=== PATIENT | female | born 1985 | race Caucasian/White ===

== ENCOUNTER 2018-03-09 15:23 | Emergency (ER) | payer BC ==
[2018-03-09 15:26] VITALS: BP 138/81
[2018-03-09] MEDS ORDERED: Sodium Chloride 0.9% 10 ML Syringe FLUSH PRN (15:33)
--- NOTE | 2018-03-09 15:33 | EDM.PDOC ---
ED HPI GENERAL MEDICAL PROBLEM - General Chief Complaint: Headache Stated Complaint: Swollen lymphnode, migriane Time Seen by Provider: 03/09/18 15:25 Source of Information: Reports: Patient, Family (), Old Records ([facility] chart/EMR) - History of Present Illness INITIAL COMMENTS - FREE TEXT/NARRATIVE: The patient was brought to the emergency room via private automobile by her for evaluation of a bilateral frontal headache with some possible diplopia however no photophobia, nausea, diaphoresis, etc. with symptoms somewhat atypical for her previous migraine headaches. She did take 650 mg of Tylenol last evening when the symptoms started with 600 mg of ibuprofen taken at 11:00 a.m. this morning. The patient has also noted a lymph node on the back of her neck since yesterday evening with no history of insect bites, known exposure to infection, etc.. The patient has never had a CT scan evaluation for her migraine headaches, however she denies any other change in her neurological status. No recent history of abdominal pain, heartburn, nausea, diarrhea, melena , gross hematochezia, or any food intolerance, including fatty foods, etc.. The patient also denies any recent fever, cough, wheezing, dyspnea, etc.. Onset: Gradual, Unknown/Unsure Onset Date: 03/08/18 Duration: Constant, Getting Worse Location: Reports: Head, Neck (Lymph node as above). Denies: Face, Chest, Abdomen, Upper Extremity, Left, Upper Extremity, Right, Radiates to Quality: Reports: Pressure, Stabbing, Throbbing Severity: Severe Improves with: Reports: None Worsens with: Reports: None Context: Reports: Other (As above) Associated Symptoms: Reports: Headaches. 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 Denies: Aneurysm, Blood Clots/VTE/DVT, Heart Murmur, High Cholesterol, Hypertension, PVD , Syncope Other Cardiovascular History: She does not know her cholesterol status. Unknown type of arrhythmia in 2013. Respiratory History: Denies: Asthma, COPD, Intubation, Difficult, Intubation, Previous, PE, Pneumothorax Gastrointestinal History: Reports: None. Denies: Celiac Disease, Cholelithiasis , Chronic Constipation, Chronic Diarrhea, Fecal Incontinence, GERD, GI Bleed, Hepatitis, Hiatal Hernia, Inflammatory Bowel Disease, Irritable Bowel Syndrome, Jaundice, Pancreatitis, PUD Genitourinary History: Reports: None. 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 Denies: Dysfunctional Uterine Bleeding, Endometriosis : 5 Para: 4 LMP (Approximate): Other (See Below) Other OB/BYN History: LMP one week ago, which was normal. Note history of 5 cm left ovarian cyst which did require excision as below. Spontaneous SAB at about 6 weeks gestation in 2010 with no seizures required. Hyperemesis gravidarum with . Otherwise, Full term without complications during pregnancies or deliveries Musculoskeletal History: Reports: Arthritis, Back Pain, Chronic, Fracture, Fibromyalgia, Osteoarthritis, Other (See Below). Denies: Amputation, Gout, RA, SLE Other Musculoskeletal History: Clavicular fracture at age 7side unknown Neurological History: Reports: Headaches, Chronic, Migraines. Denies: Concussion, CVA, Head Trauma, MS, Parkinson's, Seizure, TIA Psychiatric History: Reports: None. Denies: Abuse, Victim of, ADD, ADHD, Addiction, Anxiety, Depression, Psych Hospitalization(s), PTSD, Suicide Attempt , Suicidal Ideation Endocrine/Metabolic History: Reports: Obesity/BMI 30+. Denies: Diabetes, Gestational, Diabetes, Type I, Diabetes, Type II, Diabetes Mellitus, Type 3c, Hypothyroidism, IDDM Hematologic History: Reports: Anemia, Iron Deficiency. Denies: Blood Transfusion(s) Immunologic History: Reports: None. Denies: AIDS, HIV, SLE Oncologic (Cancer) History: Reports: None. Denies: Basal Cell Carcinoma, Breast , Cervix, Hodgkin's Lymphoma, Leukemia, Lymphoma, Malignant Melanoma, Non- Hodgkin's Lymphoma, Ovarian, Squamous Cell Carcinoma, Uterine Dermatologic History: Reports: Psoriasis. Denies: Eczema - Infectious Disease History Infectious Disease History: Reports: Chicken Pox. Denies: C-Difficile, Measles , Meningitis, Mononucleosis, MRSA, Mumps, Pertussis (Whooping Cough), Rheumatic Fever, Rubella, Scarlet Fever, Shingles, TB, VRE - Past Surgical History Head Surgeries/Procedures: Reports: None HEENT Surgical History: Reports: Oral Surgery, Other (See Below). Denies: Adenoidectomy, Eye Surgery, Laser Surgery, LASIK, Myringotomy w Tube(s), Naso- Sinus Surgery, Tonsillectomy Other HEENT Surgeries/Procedures: [place] teeth extraction 2 in 2004. Cardiovascular Surgical History: Reports: None. Denies: Varicose Respiratory Surgical History: Reports: None. Denies: Thoracentesis GI Surgical History: Reports: None. Denies: Appendectomy, Cholecystectomy, Colon, Colonoscopy, EGD, Hernia, Abdominal, Hernia, Inguinal, Hernia Repair/ Other, Polypectomy Female Surgical History: Reports: Other (See Below) Other Female Surgeries/Procedures: Excision of benign left ovarian cyst in June 2015. Endocrine Surgical History: Reports: None. Denies: Thyroid Biopsy Neurological Surgical History: Reports: None. Denies: C-Spine, Discectomy, Laminectomy, Lumbar Spine, Sacral Spine, Spinal Fusion, Thoracic Spine Musculoskeletal Surgical History: Reports: None. Denies: Arthroscopic Procedure , Carpal Tunnel, Ganglion Cyst, Joint Replacement, ORIF, Shoulder Surgery Oncologic Surgical History: Reports: None Dermatological Surgical History: Reports: None - Past Imaging History Past Imaging History: Reports: Holter Monitor (2013), MRI (MRI of the right knee on 04/25/17. MRI of the lumbar region in 2009.), Ultrasound (Pelvic ultrasound on 06/25/15. OB ultrasounds.) Social & Family History - Tobacco Use Smoking Status *Q: Never Smoker Tobacco Use Within Last Twelve Months: No Used Tobacco, but Quit: No Smoking Cessation Information Provided To Patient: No Second Hand Smoke Exposure: Yes Source of Second Hand Smoke Exposure: smokes Second Hand Smoke Education Provided: Yes - Alcohol Use Alcohol Use History: Yes Days Per Week of Alcohol Use: 0 Number of Drinks Per Day: 1 Number of Drinks Per Day Comment: Usually beer for holidays. No previous DWIs, problems with alcohol abuse, etc. 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 - Physical Exam Exam: See Below Exam Limited By: No Limitations General Appearance: Alert, WD/WN, No Apparent Distress, Anxious (Mild-to- moderate) Eye Exam: Bilateral Eye: EOMI, Normal Fundi, Normal Inspection (No Nystagmus or photophobia. Patient wearing glasses.), PERRL Ears: Normal External Exam, Normal Canal, Hearing Grossly Normal, Normal TMs Nose: Normal Inspection, Normal Mucosa, No Blood Throat/Mouth: Normal Inspection, Normal Lips, Normal Teeth, Normal Gums, Normal Oropharynx, Normal Voice, No Airway Compromise. No: Dysphagia, Evidence of Tongue Biting, Perioral Cyanosis Head Exam: Atraumatic, Normocephalic. No: Facial Swelling, Facial Tenderness, Sinus Tenderness Neck: Supple, Non-Tender, Lymphadenopathy (L) (1.5 cm left nuchal lymph node with minimal localized tenderness and no evidence of localized infection), Tender Lateral (At site of lymph node). No: Lymphadenopathy (R), Thyromegaly Respiratory/Chest: No Respiratory Distress, Lungs Clear, Normal Breath Sounds, No Accessory Muscle Use, Chest Non-Tender. No: Pleural Rub, Retractions Cardiovascular: Normal Peripheral Pulses, Regular Rate, Rhythm, No Edema, No Gallop, No JVD, No Murmur, No Rub. No: Gallop/S3, Gallop/S4, Friction Rub GI/Abdominal: Normal Bowel Sounds, Soft, Non-Tender, No Organomegaly, No Distention, No Abnormal Bruit, No Mass. No: Guarding (Female) Exam: Deferred Rectal (Female) Exam: Deferred Neuro Exam (Abbreviated): Alert, Oriented, CN II-XII Intact, Normal Cognition, Normal Gait, Normal Reflexes, No Motor/Sensory Deficits Back Exam: Normal Inspection, Full Range of Motion. No: CVA Tenderness (L), CVA Tenderness (R), Muscle Spasm Extremities: Normal Inspection, Normal Range of Motion, Non-Tender, No Pedal Edema, Normal Capillary Refill. No: Yunier's Sign Psychiatric: Anxious (Moderate) Skin Exam: Warm, Dry, Intact, Normal Color, No Rash, Stud(s) (Multiple including right supraorbital, auricular regions bilaterally, and tongue), Tattoo (s) (Multiple). No: Diaphoretic, Wound/Incision Course - Vital Signs Last Recorded V/S: Last Vital Signs Temp 36.3 C 03/09/18 15:25 Pulse 58 L 03/09/18 15:25 Resp 14 03/09/18 15:25 BP 138/81 03/09/18 15:25 Pulse Ox 98 03/09/18 15:25 Vital Signs - 24 hr 03/09/18 15:25 Temperature [ 36.3 C Temporal] Pulse, 58 L Peripheral [ Pulse Oximetry] Respiratory 14 Rate Blood Pressure 138/81 [Left Upper Arm ] O2 Sat by Pulse 98 Oximetry - Orders/Labs/Meds Orders: Active Orders 24 hr Category Date Time Status Peripheral IV Care [RC] . DIRECTED Care 03/09/18 15:34 Active Head wo Cont [CT] Stat Exams 03/09/18 15:34 Taken Sodium Chloride 0.9% [Saline Flush] Med 03/09/18 15:33 Active 10 ml FLUSH ASDIRECTED PRN Obtain Past Medical Record [OM.PC] Routine Oth 03/09/18 15:33 Active Peripheral IV Insertion Adult [OM.PC] Routine Oth 03/09/18 15:34 Ordered Medication Orders Sodium Chloride (Saline Flush) 10 ml FLUSH ASDIRECTED PRN PRN Reason: Keep Vein Open Labs: Laboratory Tests 03/09/18 03/09/18 03/09/18 Range/Units 15:48 15:48 15:48 WBC 6.2 (4.0-10.2) K/uL RBC 4.21 (3.77-5.09) M/uL Hgb 12.3 D (11.7-15.5) g/dL Hct 35.9 (34.0-46.0) % MCV 85.3 (84.0-98.0) fL MCH 29.2 (28.2-33.3) pg MCHC 34.3 (31.7-36.0) g/dL RDW 13.2 (11.2-14.1) % Plt Count 252 (150-350) K/uL Neut % (Auto) 54.9 (45.0-80.0) % Lymph % (Auto) 35.7 (10.0-50.0) % [place] % (Auto) 6.5 (2.0-14.0) % Eos % (Auto) 2.6 (0.0-5.0) % Baso % (Auto) 0.3 (0.0-2.0) % Neut # (Auto) 3.40 (1.40-7.00) K/uL Lymph # (Auto) 2.21 (0.50-3.50) K/uL [place] # (Auto) 0.40 (0.00-1.00) K/uL Eos # (Auto) 0.16 (0.00-0.50) K/uL Baso # (Auto) 0.02 (0.00-0.20) K/uL Sodium 141 (136-145) mmol/L Potassium 3.7 (3.5-5.1) mmol/L Chloride 108 H (98-107) mmol/L Carbon Dioxide 24.1 (21.0-32.0) mmol/L BUN 6 L (7-18) mg/dL Creatinine 0.66 (0.51-1.17) mg/dL Est Cr Clr Drug Dosing TNP Estimated GFR (MDRD) > 60 mL/min Glucose 104 (74-106) mg/dL Lactic Acid 0.5 (0.4-2.0) mmol/L Calcium 8.7 (8.5-10.1) mg/dL Magnesium 1.8 (1.8-2.4) mg/dL Total Bilirubin 0.3 (0.2-1.0) mg/dL AST 23 (15-37) U/L ALT 36 (12-78) U/L Alkaline Phosphatase 71 (46-116) IU/L Total Protein 6.7 (6.4-8.2) g/dL Albumin 3.5 (3.4-5.0) g/dL Meds: Medications Generic Name Dose Route Start Last Admin Trade Name Halley PRN Reason Stop Dose Admin Sodium Chloride 10 ml 03/09/18 15:33 Saline Flush FLUSH ASDIRECTED PRN Keep Vein Open Discontinued Medications Generic Name Dose Route Start Last Admin Trade Name Halley PRN Reason Stop Dose Admin Diphenhydramine HCl 50 mg 03/09/18 15:35 03/09/18 15:56 Benadryl IVPUSH 03/09/18 15:36 50 mg ONETIME ONE Administration Ketorolac Tromethamine 30 mg 03/09/18 15:35 03/09/18 15:56 Toradol IVPUSH 03/09/18 15:36 30 mg ONETIME ONE Administration Metoclopramide HCl 20 mg 03/09/18 15:35 03/09/18 15:57 Reglan IVPUSH 03/09/18 15:36 20 mg ONETIME ONE Administration - Radiology Interpretation Free Text/Narrative:: CT of the brain without contrast showed no acute abnormalities. Written report received with no previous telephone report as requested. Departure - Departure Time of Disposition: 17:20 Disposition: Home, Self-Care 01 Condition: Good Clinical Impression: Tobacco abuse counseling, Migraine - Discharge Information Instructions: Diphenhydramine injection, Metoclopramide injection, Migraine Headache, [id number], Ketorolac injection, Steps to Quit Smoking Referrals: González Law PA [Primary Care Provider] - Forms: ED Department Discharge Additional Instructions: 1. Follow up with your regular provider in 10-14 days as needed, if symptoms persist. Bring these discharge instructions with you to that visit.. 2. Tylenol 650 mg by mouth every 4 hours and/or OTC ibuprofen 2-3 tabs by mouth every 6 hours with food as directed./needed. Next dose of ibuprofen in 6 hours as needed secondary to medications given in the emergency room. 3. Sedation precautions with no driving, etc. for 12 hours because of emergency room medications. 4. Ice packs to head and neck, dark and quiet room, etc. as directed until headache resolves. 5. Discuss possible additional preventative medications for your headaches with your regular provider. Consider OTC magnesium oxide 400 mg every day as headache prevention with diarrhea precautions with this medicatiion as directed. Never initiate medications on your own, however, prior to discussing this with your regular provider. 6. Stop all tobacco use CLIVE as directed/per provided information and consider contacting Quit LIne, etc.. - Problem List & Annotations (1) Migraine SNOMED Code(s): 61064667 Code(s): G43.909 - MIGRAINE, UNSP, NOT INTRACTABLE, WITHOUT STATUS MIGRAINOSUS Status: Acute Priority: High Current Visit: Yes Onset Date: 03/09/18 Annotation/Comment:: Excellent results with treatment as above. Sedation, etc. precautions given. Note CT scan results as above, which were discussed during today's visit. Symptomatically as per discharge instructions. Nonspecific left nuchal lymphadenopathy with normal blood work, etc. She will follow-up with her regular provider in 1014 days, if this lymphadenopathy persists for further evaluation. (2) Tobacco abuse counseling SNOMED Code(s): 159838661, 279258536, 621344561 Code(s): Z71.6 - TOBACCO ABUSE COUNSELING Status: Acute Current Visit: Yes Annotation/Comment:: 's tobacco cessation encouraged with information once again provided - Problem List Review Problem List Initiated/Reviewed/Updated: Yes - My Orders Last 24 Hours: My Active Orders 03/09/18 15:33 Sodium Chloride 0.9% [Saline Flush] 10 ml FLUSH ASDIRECTED PRN Obtain Past Medical Record [OM.PC] Routine 03/09/18 15:34 Peripheral IV Care [RC] . DIRECTED Head wo Cont [CT] Stat Peripheral IV Insertion Adult [OM.PC] Routine - Assessment/Plan Last 24 Hours: My Active Orders 03/09/18 15:33 Sodium Chloride 0.9% [Saline Flush] 10 ml FLUSH ASDIRECTED PRN Obtain Past Medical Record [OM.PC] Routine 03/09/18 15:34 Peripheral IV Care [RC] . DIRECTED Head wo Cont [CT] Stat Peripheral IV Insertion Adult [OM.PC] Routine Assessment:: As above. Plan: As above. Extensive precautions were given to the patient and her , who are in agreement with the treatment plan. See Patient Instructions for further treatment and plan.
[2018-03-09] MEDS ORDERED: Ketorolac 30 MG/ML SDV IVPUSH ONE (15:35)
[2018-03-09] MEDS ORDERED: diphenhydrAMINE 50 MG/ML SDV IVPUSH ONE (15:35)
[2018-03-09] MEDS ORDERED: Metoclopramide 10 MG/2 ML SDV IVPUSH ONE (15:35)
[2018-03-09 16:08] LABS: CHLORIDE,CL 108 mmol/L (98-107); SODIUM,NA 141 mmol/L (136-145)
== END 2018-03-09 17:20 | disposition home or self-care (01) ==
LOC: LL.ED 15:23
DX: G43.909 Migraine, unspecified, not intractable, without status migrainosus (principal); Z71.6 Tobacco abuse counseling; Z77.22 Contact with and (suspected) exposure to environmental tobacco smoke (acute) (chronic); Z88.5 Allergy status to narcotic agent; Z88.8 Allergy status to other drugs, medicaments and biological substances; Z91.030 Bee allergy status
CPT/HCPCS: 36415; 70450; 80053; 83605; 83735; 85025; 96374; 96375; 99284; J1200; J1885; J2765

== ENCOUNTER 2020-03-14 10:20 | Emergency (ER) | payer BC, MEDICAID ==
--- NOTE | 2020-03-14 10:25 | EDM.PDOC ---
ED HPI GENERAL MEDICAL PROBLEM - General Chief Complaint: General Stated Complaint: BACK PAIN Time Seen by Provider: 03/14/20 10:20 Source of Information: Reports: Patient, Old Records ([facility] EMR. No paper hospital chart available.) History Limitations: Reports: No Limitations - History of Present Illness INITIAL COMMENTS - FREE TEXT/NARRATIVE: The patient drove herself to the emergency room via private automobile for evaluation of 06/21 right-sided low back pain and spasms with the patient hearing a snap when she got up in the chair at home at about 13:30 hours yesterday afternoon. Symptoms have been refractory to topical heating pad and ibuprofen of 800 mg, which was last taken at 02:30 a.m. this morning. No history of fall, head injury, paresthesias, leg weakness, neurological deficits, or other complaints or injuries. No recent history of abdominal pain, heartburn, nausea, diarrhea, melena, gross hematochezia, or any food intolerance, including fatty foods, etc.. She denies any gross hematuria, colic, or other UTI symptoms. The patient also denies any recent fever, cough, wheezing, dyspnea, etc.. Onset: Sudden Onset Date: 03/13/20 Onset Time: 13:30 Duration: Constant, Getting Worse Location: Reports: Back. Denies: Head, Face, Neck, Chest, Abdomen, Lower Extremity, Left, Lower Extremity, Right, Radiates to Quality: Reports: Same as Previous Episode, Stabbing Severity: Severe Improves with: Reports: Rest Worsens with: Reports: Movement Context: Reports: Other (As above). 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: Home Treatments (As above), NSAIDS Right Lower Back Pain Score (Numeric/FACES): 10 Lower Back Pain Score (Numeric/FACES): 7 - Related Data Allergies Allergy/AdvReac Type Severity Reaction Status Date / Time codeine Allergy Rash Verified 03/14/20 10:38 promethazine Allergy Hallucinati Verified 03/14/20 10:38 ons venom-honey bee Allergy Anaphylactic Verified 03/14/20 10:38 Shock Home Meds: Home Meds Ibuprofen 600 mg PO Q6HR PRN 03/09/18 [History] Cyclobenzaprine [Flexeril] 10 mg PO TID PRN #30 tab 03/14/20 [Rx] Past Medical History HEENT History: Reports: Impaired Vision, Other (See Below) Other HEENT History: She wears glasses Cardiovascular History: Reports: Arrhythmia, Other (See Below). Denies: Aneurysm, Blood Clots/VTE/DVT, Heart Murmur, High Cholesterol, Hypertension, PVD, Syncope Other Cardiovascular History: She does not know her cholesterol status. Unknown type of arrhythmia in 2013. Respiratory History: Denies: Asthma, Bronchitis, Recurrent, COPD, Intubation, Previous, PE, Pneumonia, Recurrent, Pneumothorax Gastrointestinal History: Reports: None. Denies: Celiac Disease, Cholelithiasis, Chronic Constipation, Chronic Diarrhea, Fecal Incontinence, GERD, GI Bleed, Hepatitis, Hiatal Hernia, Inflammatory Bowel Disease, Irritable Bowel Syndrome, Jaundice, Pancreatitis, PUD Genitourinary History: Reports: None. Denies: Acute Renal Failure, Chronic Renal Insuffiency, Renal Calculus, Retention, Urinary, STD, Urinary Incontinence, UTI, Recurrent MINE EXPERT History: Reports: Hyperemesis, Polycystic Ovaries, , Spontaneous . Denies: Dysfunctional Uterine Bleeding, Endometriosis : 5 Para: 4 Other MINE EXPERT History: LMP 2 weeks ago, which was normal. Note history of 5 cm left ovarian cyst which did require excision as below. Spontaneous SAB at about 6 weeks gestation in 2010 with no D&C required. Hyperemesis gravidarum with . Otherwise, Full term without complications during pregnancies or deliveries Musculoskeletal History: Reports: Arthritis, Back Pain, Chronic, Fracture, Fibromyalgia, Osteoarthritis, Other (See Below). Denies: Amputation, Gout, RA, SLE Other Musculoskeletal History: Clavicular fracture at age 7side unknown Neurological History: Reports: Headaches, Chronic, Migraines. Denies: Concussion, CVA, Head Trauma, MS, Parkinson's, Seizure, TIA Psychiatric History: Reports: None. Denies: Abuse, Victim of, ADD, ADHD, Addiction, Anxiety, Depression, Psych Hospitalization(s), PTSD, Suicide Attempt, Suicidal Ideation Endocrine/Metabolic History: Reports: Obesity/BMI 30+. Denies: Diabetes, Gestational, Diabetes, Type I, Diabetes, Type II, Diabetes Mellitus, Type 3c, Hypothyroidism, IDDM Hematologic History: Reports: Anemia, Iron Deficiency. Denies: Blood Transfusion(s) Immunologic History: Reports: None. Denies: AIDS, HIV, SLE Oncologic (Cancer) History: Reports: None. Denies: Basal Cell Carcinoma, Breast, Cervix, Hodgkin's Lymphoma, Leukemia, Lymphoma, Malignant Melanoma, Non- Hodgkin's Lymphoma, Ovarian, Squamous Cell Carcinoma, Uterine Dermatologic History: Reports: Psoriasis. Denies: Eczema - Infectious Disease History Infectious Disease History: Reports: Chicken Pox. Denies: C-Difficile, Measles, Meningitis, Mononucleosis, MRSA, Mumps, Pertussis (Whooping Cough), Rheumatic Fever, Rubella, Scarlet Fever, Shingles, TB, VRE - Past Surgical History Head Surgeries/Procedures: Reports: None HEENT Surgical History: Reports: Oral Surgery, Other (See Below). Denies: Adenoidectomy, Eye Surgery, Laser Surgery, LASIK, Myringotomy w Tube(s), Naso- Sinus Surgery, Tonsillectomy Other HEENT Surgeries/Procedures: Garrison teeth extraction 2 in 2004. Cardiovascular Surgical History: Reports: None. Denies: Varicose Respiratory Surgical History: Reports: None. Denies: Thoracentesis GI Surgical History: Reports: None. Denies: Appendectomy, Cholecystectomy, Colon, Colonoscopy, EGD, Hernia, Abdominal, Hernia, Inguinal, Hernia Repair/Other, Polypectomy Female Surgical History: Reports: Other (See Below) Other Female Surgeries/Procedures: Excision of benign left ovarian cyst in June 2015. Endocrine Surgical History: Reports: None. Denies: Thyroid Biopsy Neurological Surgical History: Reports: None. Denies: C-Spine, Discectomy, Laminectomy, Lumbar Spine, Sacral Spine, Spinal Fusion, Thoracic Spine Musculoskeletal Surgical History: Reports: None. Denies: Arthroscopic Procedure, Carpal Tunnel, Ganglion Cyst, Joint Replacement, ORIF, Shoulder Surgery Oncologic Surgical History: Reports: None Dermatological Surgical History: Reports: None - Past Imaging History Past Imaging History: Reports: Holter Monitor (2013), MRI (MRI of the right knee on 04/25/17. MRI of the lumbar region in 2009.), Ultrasound (Pelvic ultrasound on 06/25/15. OB ultrasounds.) Social & Family History - Tobacco Use Smoking Status *Q: Never Smoker Used Tobacco, but Quit: No Smoking Cessation Information Provided To Patient: No Second Hand Smoke Exposure: Yes Source of Second Hand Smoke Exposure: Second Hand Smoke Education Provided: Yes (Information also previously given on 03/09/15) - Alcohol Use Alcohol Use History: Yes Days Per Week of Alcohol Use: 0 Number of Drinks Per Day: 1 Number of Drinks Per Day Comment: Usually beer for holidays. No previous DWIs, problems with alcohol abuse, etc. Total Drinks Per Week: 0 Alcohol Use in Last Twelve Months: Yes Alcohol Use Frequency: Rarely - Recreational Drug Use Recreational Drug Use: No Recreational Drug Type: Denies: Amphetamines (Speed), Cocaine, Heroin, Inhalants (Glues, Solvents, Aerosols), LSD (Acid), Marijuana/Hashish, Methamphetamine, Morphine, Oxycodone - Living Situation & Occupation Living situation: Reports: (2014, however currently in divorce process. 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 ED EXAM, GENERAL - Physical Exam Exam: See Below Exam Limited By: No Limitations General Appearance: Alert, WD/WN, No Apparent Distress, Anxious (Moderate) Head: Atraumatic, Normocephalic. No: Facial Swelling, Facial Tenderness, Sinus Tenderness Neck: Normal Inspection, Supple, Non-Tender, Full Range of Motion. No: Lymphadenopathy (L), Lymphadenopathy (R), Thyromegaly Respiratory/Chest: No Respiratory Distress, Lungs Clear, Normal Breath Sounds, No Accessory Muscle Use, Chest Non-Tender. No: Pleural Rub, Retractions Cardiovascular: Normal Peripheral Pulses, Regular Rate, Rhythm, No Edema, No Gallop, No JVD, No Murmur, No Rub. No: Gallop/S3, Gallop/S4, Friction Rub Peripheral Pulses: 2+: Radial (L), Radial (R), Dorsalis Pedis (L), Dorsalis Pedis (R) GI/Abdominal: Normal Bowel Sounds, Soft, Non-Tender, No Organomegaly, No Distention, No Abnormal Bruit, No Mass, Pelvis Stable, Other (obese). No: Guarding (Female) Exam: Deferred Rectal (Female) Exam: Deferred Back Exam: Decreased Range of Motion, Muscle Spasm (Mild to upper right sided paraspinal tenderness and muscle spasms), Paraspinal Tenderness. No: CVA Tenderness (L), CVA Tenderness (R), Vertebral Tenderness Extremities: Normal Inspection, Normal Range of Motion, Non-Tender, No Pedal Edema, Normal Capillary Refill. No: Yunier's Sign Neurological: Alert, Oriented, CN II-XII Intact, Normal Cognition, Normal Gait (Although with difficulty secondary to back spasms), Normal Reflexes, No Motor/Sensory Deficits Psychiatric: Anxious (Moderate), Depressed Mood (Mild) Skin Exam: Warm, Dry, Intact, Normal Color, No Rash, Stud(s) (Multiple including bilateral auricules and right upper eyebrow), Tattoo(s) (Multiple). No: Diaphoretic, Wound/Incision Lymphatic: No Adenopathy Course - Vital Signs Last Recorded V/S: Last Vital Signs Temp 36.3 C 03/14/20 10:21 Pulse 97 03/14/20 10:21 Resp 16 03/14/20 10:21 BP 123/81 03/14/20 10:21 Pulse Ox 100 03/14/20 10:21 Vital Signs - 24 hr 03/14/20 10:21 Temperature [ 36.3 C Temporal] Pulse, 97 Peripheral [ Pulse Oximetry] Respiratory 16 Rate Blood Pressure 123/81 [Right Upper Arm] O2 Sat by Pulse 100 Oximetry - Orders/Labs/Meds Orders: Active Orders 24 hr Category Date Time Status Lumbar Spine 2 or 3V [CR] Stat Exams 03/14/20 10:25 Ordered Obtain Past Medical Record [OM.PC] Routine Oth 03/14/20 10:25 Active Labs: None Meds: Medications Discontinued Medications Generic Name Dose Route Start Last Admin Trade Name Halley PRN Reason Stop Dose Admin Ketorolac Tromethamine 60 mg 03/14/20 10:43 03/14/20 10:48 Toradol IM 03/14/20 10:44 60 mg ONETIME ONE Administration - Radiology Interpretation Free Text/Narrative:: X-rays of the lumbar spine 3 views, shows no evidence of fracture, dislocation, etc. Mild osteoarthritic changes especially in L5. No decreased lordosis Departure - Departure Time of Disposition: 11:07 Disposition: Home, Self-Care 01 Condition: Good Clinical Impression: Tobacco abuse counseling, Low back pain, Osteoarthritis, Mixed anxiety depressive disorder - Discharge Information *PRESCRIPTION DRUG MONITORING PROGRAM REVIEWED*: Not Applicable *COPY OF PRESCRIPTION DRUG MONITORING REPORT IN PATIENT [place]UL[place]: Not Applicable Prescriptions: Cyclobenzaprine [Flexeril] 10 mg PO TID PRN #30 tab PRN Reason: Spasms Instructions: Steps to Quit Smoking, [id number], Health Risks of Smoking, Acute Back Pain, Adult Referrals: PCP,Unknown [Primary Care Provider] - Forms: ED Department Discharge Additional Instructions: 1. Follow up with your regular provider in 10-14 days as needed, if symptoms persist. Bring these discharge instructions with you to that visit.. 2. Tylenol 650 mg by mouth every 4 hours and/or OTC ibuprofen 2-3 tabs by mouth every 6 hours with food as directed./needed. You may stagger these medications for 48-72 hours only, which essentially means that you are receiving a pain medication about every 2 hours. Next dose of ibuprofen as needed in 6 hours secondary to medications given in the emergency room. 3. BenGay or equivalent, heating pad, and/or ice packs as directed. 4. Stop all tobacco exposure CLIVE as directed with counselling, information, etc. given at discharge. 5. Sedation dry mouth, etc. precautions with Flexeril as discussed 6. Immediately after this visit verify that your cellular telephone's voicemail has been activated and is empty. Also verify that your home telephone's answering machine is operating properly and has space to receive messages. Note that it is sometimes necessary for us to be able to contact you at a later date to discuss your medical care. 7. Please remember that we are ALWAYS here for you and want to answer any questions you may have. Feel free to call the hospital any time and we call you back CLIVE. Sepsis Event Note (ED) - Focused Exam Vital Signs: Vital Signs Temp Pulse Resp BP Pulse Ox 03/14/20 10:21 36.3 C 97 16 123/81 100 - Problem List & Annotations (1) Low back pain SNOMED Code(s): 375580668 Code(s): M54.5 - LOW BACK PAIN Status: Acute Priority: High Onset Date: 03/13/20 Annotation/Comment:: IM Toradol given. She does not need a work excuse. Sedation, etc. precautions given with initiation of outpatient Flexeril therapy. Otherwise, symptomatic relief as per discharge instructions. Weight loss in moderation was already previously discussed with patient already consulting with her regular provider for this issue. Distant MRI of the lumbar spine in the past as above. Qualifiers: Chronicity: acute Back pain laterality: right Sciatica presence: without sciatica Qualified Code(s): M54.5 - Low back pain (2) Fibromyalgia SNOMED Code(s): 148952342 Code(s): M79.7 - FIBROMYALGIA Status: Acute Priority: Medium Annotation/Comment:: Stable by patient history with no current medical therapy with previous amitriptyline therapy (3) Mixed anxiety depressive disorder SNOMED Code(s): 717761402 Code(s): F41.8 - OTHER SPECIFIED ANXIETY DISORDERS Status: Acute Priority: Medium Onset Date: 03/14/20 Annotation/Comment:: No current medical therapy. Observe for now with further medical therapy by her regular provider depending on her clinical course. Note current stressors secondary to divorce proceedings with her . (4) Osteoarthritis SNOMED Code(s): 815082859 Code(s): M19.90 - UNSPECIFIED OSTEOARTHRITIS, UNSPECIFIED SITE Status: Chronic Priority: Medium Annotation/Comment:: Otherwise stable with no other acute injury. Qualifiers: Osteoarthritis location: multiple joints Osteoarthritis type: primary Qualified Code(s): M89.49 - Other hypertrophic osteoarthropathy, multiple sites - Problem List Review Problem List Initiated/Reviewed/Updated: Yes - My Orders Last 24 Hours: My Active Orders 03/14/20 10:25 Lumbar Spine 2 or 3V [CR] Stat Obtain Past Medical Record [OM.PC] Routine - Assessment/Plan Last 24 Hours: My Active Orders 03/14/20 10:25 Lumbar Spine 2 or 3V [CR] Stat Obtain Past Medical Record [OM.PC] Routine Assessment:: As above Plan: As above. Extensive precautions were given to the patient, who is in agreement with the treatment plan. See Patient Instructions for further treatment and plan.
[2020-03-14 10:31] VITALS: BP 123/81; PULSE 97
[2020-03-14] MEDS ORDERED: Ketorolac 60 MG/2 ML SDV IM ONE (10:43)
== END 2020-03-14 11:07 | disposition home or self-care (01) ==
LOC: LL.ED 10:20
DX: M54.5 Low back pain (principal); M19.90 Unspecified osteoarthritis, unspecified site; F41.8 Other specified anxiety disorders; Z71.6 Tobacco abuse counseling; Z77.22 Contact with and (suspected) exposure to environmental tobacco smoke (acute) (chronic); Z88.5 Allergy status to narcotic agent; Z91.030 Bee allergy status; Z88.8 Allergy status to other drugs, medicaments and biological substances
CPT/HCPCS: 72100; 96372; 99283-25; J1885